=== PATIENT | female | born 1950 | race Caucasian/White ===

== ENCOUNTER 2018-04-26 09:08 | Emergency (ER) | payer MEDICARE, OTHER ==
[~2018-04-26] VITALS: Ht 578.2 cm; Wt 59.1 kg
[~2018-04-26 09:08] MED LIST: ALPR-624 PO
[2018-04-26 09:13] VITALS: BP 121/60
[2018-04-26] MEDS ORDERED: HYDR-569 PO (10:40)
[2018-04-26] MEDS ORDERED: HYDROcodone/acetaminophen 5mg/325mg tablet PO ONE (10:40)
== END 2018-04-26 10:52 | disposition home or self-care (01) ==
LOC: ER 09:09
DX: S42.002A Fracture of unspecified part of left clavicle, initial encounter for closed fracture (principal); Z86.14 Personal history of Methicillin resistant Staphylococcus aureus infection; Z88.1 Allergy status to other antibiotic agents; Z79.899 Other long term (current) drug therapy; W22.8XXA Striking against or struck by other objects, initial encounter; Y93.89 Activity, other specified; Y92.89 Other specified places as the place of occurrence of the external cause; Y99.8 Other external cause status
CPT/HCPCS: 73000; 99284; A4565; L3650

== ENCOUNTER 2018-05-02 16:24 | Emergency (ER) | payer MEDICARE, OTHER ==
[~2018-05-02] VITALS: Ht 167.6 cm; Wt 59.1 kg
[~2018-05-02 16:24] MED LIST changes: +HYDR-569 PO
[2018-05-02] MEDS ORDERED: HYDR-565 PO (18:19)
[2018-05-02 18:47] VITALS: BP 135/84
== END 2018-05-02 18:48 | disposition home or self-care (01) ==
LOC: ER 16:24
DX: S42.002D Fracture of unspecified part of left clavicle, subsequent encounter for fracture with routine healing (principal); Z88.1 Allergy status to other antibiotic agents; W22.8XXD Striking against or struck by other objects, subsequent encounter
CPT/HCPCS: 73030; 99284

== ENCOUNTER 2018-05-09 15:38 | Inpatient (IN) | payer MEDICARE, OTHER ==
[~2018-05-09] VITALS: Ht 167.6 cm; Wt 59.0 kg
[~2018-05-09 15:38] MED LIST changes: +HYDR-4383 PO; -HYDR-569 PO
[2018-05-09] MEDS ORDERED: normal saline 1000ML IV soln IV ONE (15:50)
[2018-05-09 16:17] LABS: INR 1.3 INR; PARTIAL THROMBOPLASTIN TIME 27 SECONDS (22-32); PROTHROMBIN TIME 12.9 SECONDS (9.0-12.0)
[2018-05-09 16:20] LABS: BASOPHILS % (AUTO) 0.1 % (0-1); EOSINOPHILS % (AUTO) 0 % (0-6); HEMATOCRIT 27.1 % (35.0-45.0); HEMOGLOBIN 9.1 g/dl (12.0-16.0); LYMPHOCYTES % (AUTO) 8.4 % (21-51); MEAN CORPUSCULAR HEMOGLOBIN 32.6 PG (27.0-31.0); MEAN CORPUSCULAR HGB CONC 33.6 % (33.0-36.5); MEAN CORPUSCULAR VOLUME 96.9 FL (78-98); MEAN PLATELET VOLUME 9.3 FL (7.4-10.4); MONOCYTES # (AUTO) 0.4 X10'3 (0-0.9); MONOCYTES % (AUTO) 3.3 % (2-12); NEUTROPHILS # (AUTO) 10.9 X10'3 (1.8-7.7); NEUTROPHILS % (AUTO) 88.2 % (42-75); PLATELET COUNT 190 X10'3 (140-440); RED CELL DISTRIBUTION WIDTH 16.1 % (11.5-14.5); WHITE BLOOD COUNT 12.3 X10'3 (4.5-11.0)
[2018-05-09 16:22] LABS: ACETAMINOPHEN < 2.0 UG/ML (10-30); ALANINE AMINOTRANSFERASE 56 U/L (12-78); ALBUMIN 2.1 G/DL (3.4-5.0); ALBUMIN/GLOBULIN RATIO 0.4 (1.1-1.5); ALKALINE PHOSPHATASE 360 IU/L (46-116); ANION GAP 16 (8-16); ASPARTATE AMINO TRANSFERASE 209 U/L (10-37); BILIRUBIN,TOTAL 1.5 MG/DL (0.1-1.0); BLOOD UREA NITROGEN 46 MG/DL (7-18); BUN/CREATININE RATIO 18.3 (6.6-38.0); CALCIUM 8.7 MG/DL (8.5-10.1); CHLORIDE 106 MMOL/L (99-107); CREATININE 2.51 MG/DL (0.40-0.90); ETHANOL < 0.010 GM/DL (0.0-0.010); GLUCOSE 225 MG/DL (70-104); MAGNESIUM 2.2 MG/DL (1.5-2.4); POTASSIUM 3.6 MMOL/L (3.5-5.1); SODIUM 139 MMOL/L (135-145); TOTAL CARBON DIOXIDE 17.3 MMOL/L (24-32); eGFR 19 ML/MIN
[2018-05-09 17:01] LABS: CLARITY,URINE CLEAR (Clear); COLOR,URINE YELLOW (Yellow); GLUCOSE, URINE NEGATIVE (Neg); KETONES,URINE TRACE mg/dl (Neg); LEUKOCYTE ESTERASE ,URINE SMALL (Neg); NITRITES, URINE NEGATIVE (Neg); OCCULT BLOOD,URINE LARGE (Neg); PROTEIN,URINE 30 mg/dl (Neg)
[2018-05-09 17:04] LABS: UA COLLECTION TYPE STRAIGHT CATH
[2018-05-09 17:08] LABS: MUCUS STRANDS FEW /LPF (Neg); SQUAMOUS EPITHELIAL CELL,UR MODERATE /LPF (FEW)
[2018-05-09 17:11] LABS: TRANSITIONAL EPI CELLS,URINE FEW /HPF
[2018-05-09 17:14] LABS: BACTERIA,URINE 1+ /HPF (Neg)
[2018-05-09 17:16] LABS: URINE AMPHETAMINE SCREEN NEGATIVE (Neg); URINE BARBITUATE SCREEN NEGATIVE (Neg); URINE BENZODIAZEPINES SCREEN POSITIVE (Neg); URINE CANNABINOID SCREEN NEGATIVE (Neg); URINE COCAINE SCREEN NEGATIVE (Neg); URINE METHADONE SCREEN NEGATIVE (Neg); URINE OPIATE SCREEN POSITIVE (Neg); URINE PHENCYCLIDINE SCREEN NEGATIVE (Neg)
[2018-05-09] MEDS ORDERED: ondansetron/PF 4mg/2ml inj IV PRN (17:55)
[2018-05-09] MEDS ORDERED: magnesium hydroxide 30ml (MOM) UD suspension PO PRN (17:55)
[2018-05-09] MEDS ORDERED: naloxone 0.4 mg/ml inj IV ONE (17:55)
[2018-05-09] MEDS ORDERED: mag hydrox/Alum hydrox/simeth 30ml oral suspension PO PRN (17:55)
[2018-05-09] MEDS ORDERED: HYDROcodone/acetaminophen 10/325mg tab PO PRN (17:55)
[2018-05-09] MEDS ORDERED: HYDROcodone/acetaminophen 5mg/325mg tablet PO PRN (17:55)
[2018-05-09] MEDS ORDERED: morphine 2 MG/ML inj. syringe IV PRN ×2 (17:55)
[2018-05-09] MEDS ORDERED: acetaminophen 325mg tablet PO PRN ×2 (17:55)
[2018-05-09] MEDS: normal saline 1000ml 1,000 ML IV SCH (17:58)
[2018-05-09] MEDS ORDERED: PANT40TA4 PO (18:04)
[2018-05-09] MEDS ORDERED: LORA10TA7 PO (18:04)
[2018-05-09] MEDS ORDERED: GABA-530 PO (18:18)
[2018-05-09] MEDS: heparin, porcine 5000 units/ml vial SQ SCH (21:47)
[2018-05-09 22:52] VITALS: BP 120/68
[2018-05-10] VITALS (7 sets, daily range): BP systolic 84–115; BP diastolic 41–49
[2018-05-10] MEDS: normal saline 1000ml 1,000 ML IV SCH ×3 (01:59→22:41)
[2018-05-10 05:13] LABS: HEMATOCRIT 24.5 % (35.0-45.0); HEMOGLOBIN 8.4 g/dl (12.0-16.0); MEAN CORPUSCULAR HEMOGLOBIN 33.1 PG (27.0-31.0); MEAN CORPUSCULAR HGB CONC 34.4 % (33.0-36.5); MEAN CORPUSCULAR VOLUME 96.4 FL (78-98); MEAN PLATELET VOLUME 9.1 FL (7.4-10.4); PLATELET COUNT 152 X10'3 (140-440); RED BLOOD COUNT 2.54 X10'6 (4.20-5.60); RED CELL DISTRIBUTION WIDTH 16.5 % (11.5-14.5); WHITE BLOOD COUNT 7.7 X10'3 (4.5-11.0)
[2018-05-10 05:29] LABS: ALANINE AMINOTRANSFERASE 67 U/L (12-78); ALBUMIN 1.7 G/DL (3.4-5.0); ALBUMIN/GLOBULIN RATIO 0.4 (1.1-1.5); ALKALINE PHOSPHATASE 303 IU/L (46-116); ANION GAP 14 (8-16); ASPARTATE AMINO TRANSFERASE 300 U/L (10-37); BILIRUBIN,TOTAL 1.1 MG/DL (0.1-1.0); BLOOD UREA NITROGEN 43 MG/DL (7-18); BUN/CREATININE RATIO 22.4 (6.6-38.0); CALCIUM 8.1 MG/DL (8.5-10.1); CHLORIDE 112 MMOL/L (99-107); CREATININE 1.92 MG/DL (0.40-0.90); GLUCOSE 116 MG/DL (70-104); POTASSIUM 3.3 MMOL/L (3.5-5.1); SODIUM 144 MMOL/L (135-145); TOTAL CARBON DIOXIDE 17.7 MMOL/L (24-32); TOTAL PROTEIN 6.1 G/DL (6.4-8.2); eGFR 26 ML/MIN
[2018-05-10 07:43] LABS: ANISOCYTOSIS 1+; PLATELET ESTIMATE NORMAL; TOTAL CELLS COUNTED 100
[2018-05-10] MEDS ORDERED: HYDROcodone/acetaminophen 5mg/325mg tablet PO PRN (08:20)
[2018-05-10] MEDS ORDERED: potassium Cl 20 mEq SR tablet PO STA (08:20)
[2018-05-10] MEDS: heparin, porcine 5000 units/ml vial SQ SCH ×2 (08:35→19:38)
[2018-05-10] MEDS ORDERED: pneumococcal 23-VAL P-sac vacc 25 mcg/0.5ml vial IMVAC ONE (12:15)
[2018-05-10] MEDS: gabapentin 100mg capsule PO SCH (16:48)
[2018-05-11] MEDS: gabapentin 100mg capsule PO SCH ×3 (00:10→16:21)
[2018-05-11 00:25] VITALS: BP 106/47
[2018-05-11 05:33] LABS: HEMATOCRIT 23.7 % (35.0-45.0); HEMOGLOBIN 8.3 g/dl (12.0-16.0); MEAN CORPUSCULAR VOLUME 97.1 FL (78-98); MEAN PLATELET VOLUME 9.5 FL (7.4-10.4); PLATELET COUNT 161 X10'3 (140-440); RED BLOOD COUNT 2.44 X10'6 (4.20-5.60); RED CELL DISTRIBUTION WIDTH 17.6 % (11.5-14.5); WHITE BLOOD COUNT 7.1 X10'3 (4.5-11.0)
[2018-05-11 05:44] LABS: ALANINE AMINOTRANSFERASE 63 U/L (12-78); ALBUMIN 1.6 G/DL (3.4-5.0); ALBUMIN/GLOBULIN RATIO 0.4 (1.1-1.5); ALKALINE PHOSPHATASE 306 IU/L (46-116); ANION GAP 15 (8-16); ASPARTATE AMINO TRANSFERASE 220 U/L (10-37); BILIRUBIN,TOTAL 1.1 MG/DL (0.1-1.0); BLOOD UREA NITROGEN 41 MG/DL (7-18); BUN/CREATININE RATIO 28.3 (6.6-38.0); CALCIUM 8.1 MG/DL (8.5-10.1); CHLORIDE 115 MMOL/L (99-107); CREATININE 1.45 MG/DL (0.40-0.90); GLUCOSE 148 MG/DL (70-104); POTASSIUM 3.6 MMOL/L (3.5-5.1); SODIUM 146 MMOL/L (135-145); TOTAL CARBON DIOXIDE 15.9 MMOL/L (24-32); TOTAL PROTEIN 5.8 G/DL (6.4-8.2); eGFR 36 ML/MIN
[2018-05-11 06:56] LABS: TOTAL CELLS COUNTED 100
[2018-05-11 06:57] LABS: ANISOCYTOSIS 2+; PLATELET ESTIMATE NORMAL
[2018-05-11 07:00] VITALS: BP 102/49
[2018-05-11] MEDS: heparin, porcine 5000 units/ml vial SQ SCH ×2 (07:03→19:54)
[2018-05-11] MEDS: loratadine 10mg tablet PO SCH (07:03)
[2018-05-11] MEDS: pantoprazole 40mg Tablet.DR PO SCH (07:03)
[2018-05-11] MEDS: lactulose 20gm/30ml cup PO SCH ×2 (10:26→19:54)
[2018-05-11] MEDS: normal saline 1000ml 1,000 ML IV SCH ×2 (10:26→22:46)
[2018-05-11] MEDS: CefTRIAXone/D5W-Rocephin 1gm 50 ML IV SCH (10:26)
[2018-05-11 11:00] VITALS: BP 109/50
[2018-05-11 11:43] VITALS: BP_SYST 108; BP_SYST 109; BP_DIAS 50; BP_DIAS 54
[2018-05-11 19:00] VITALS: BP 121/43
[2018-05-12] VITALS: BP 133/65
[2018-05-12] MEDS: gabapentin 100mg capsule PO SCH ×3 (00:07→15:32)
[2018-05-12 05:19] LABS: BASOPHILS % (AUTO) 0.3 % (0-1); EOSINOPHILS % (AUTO) 0.1 % (0-6); HEMATOCRIT 24.6 % (35.0-45.0); HEMOGLOBIN 8.5 g/dl (12.0-16.0); LYMPHOCYTES # (AUTO) 2.1 X10'3 (1.1-4.8); LYMPHOCYTES % (AUTO) 27.7 % (21-51); MEAN CORPUSCULAR HEMOGLOBIN 33.5 PG (27.0-31.0); MEAN CORPUSCULAR HGB CONC 34.4 % (33.0-36.5); MEAN CORPUSCULAR VOLUME 97.2 FL (78-98); MEAN PLATELET VOLUME 9.2 FL (7.4-10.4); MONOCYTES # (AUTO) 0.4 X10'3 (0-0.9); MONOCYTES % (AUTO) 5.3 % (2-12); NEUTROPHILS % (AUTO) 66.6 % (42-75); PLATELET COUNT 163 X10'3 (140-440); RED BLOOD COUNT 2.53 X10'6 (4.20-5.60); RED CELL DISTRIBUTION WIDTH 17.8 % (11.5-14.5); WHITE BLOOD COUNT 7.5 X10'3 (4.5-11.0)
[2018-05-12 05:40] LABS: ALANINE AMINOTRANSFERASE 70 U/L (12-78); ALBUMIN 1.6 G/DL (3.4-5.0); ALBUMIN/GLOBULIN RATIO 0.4 (1.1-1.5); ALKALINE PHOSPHATASE 317 IU/L (46-116); ANION GAP 17 (8-16); ASPARTATE AMINO TRANSFERASE 164 U/L (10-37); BILIRUBIN,TOTAL 0.8 MG/DL (0.1-1.0); BLOOD UREA NITROGEN 36 MG/DL (7-18); BUN/CREATININE RATIO 30.8 (6.6-38.0); CALCIUM 8.3 MG/DL (8.5-10.1); CHLORIDE 118 MMOL/L (99-107); CREATININE 1.17 MG/DL (0.40-0.90); GLUCOSE 163 MG/DL (70-104); POTASSIUM 3.2 MMOL/L (3.5-5.1); SODIUM 150 MMOL/L (135-145); TOTAL CARBON DIOXIDE 15.2 MMOL/L (24-32); TOTAL PROTEIN 5.9 G/DL (6.4-8.2); eGFR 46 ML/MIN
[2018-05-12] MEDS: normal saline 1000ml 1,000 ML IV SCH ×2 (05:52→10:50)
[2018-05-12 07:26] VITALS: BP 110/45
[2018-05-12] MEDS: CefTRIAXone/D5W-Rocephin 1gm 50 ML IV SCH (08:17)
[2018-05-12] MEDS: loratadine 10mg tablet PO SCH (08:19)
[2018-05-12] MEDS: pantoprazole 40mg Tablet.DR PO SCH (08:20)
[2018-05-12] MEDS: lactulose 20gm/30ml cup PO SCH ×2 (08:20→19:47)
[2018-05-12] MEDS: heparin, porcine 5000 units/ml vial SQ SCH ×2 (08:28→19:46)
[2018-05-12] MEDS ORDERED: potassium Cl 20 mEq SR tablet PO STA (11:02)
[2018-05-12 12:00] VITALS: BP 132/66
[2018-05-12] MEDS: lactobacillus rhamnosus 10,000 MMU CELLS/CAPSULE PO SCH (19:47)
[2018-05-12 20:00] VITALS: BP_SYST 123; BP_SYST 97; BP_DIAS 51; BP_DIAS 66
[2018-05-13] VITALS: BP 106/62
[2018-05-13] MEDS: gabapentin 100mg capsule PO SCH ×3 (00:24→15:37)
[2018-05-13 05:33] LABS: BASOPHILS % (AUTO) 0.1 % (0-1); EOSINOPHILS % (AUTO) 0.4 % (0-6); HEMATOCRIT 26.8 % (35.0-45.0); LYMPHOCYTES # (AUTO) 1.1 X10'3 (1.1-4.8); LYMPHOCYTES % (AUTO) 13.3 % (21-51); MEAN CORPUSCULAR HEMOGLOBIN 33.2 PG (27.0-31.0); MEAN CORPUSCULAR HGB CONC 33.5 % (33.0-36.5); MEAN PLATELET VOLUME 9.9 FL (7.4-10.4); MONOCYTES # (AUTO) 0.5 X10'3 (0-0.9); MONOCYTES % (AUTO) 5.5 % (2-12); NEUTROPHILS # (AUTO) 6.9 X10'3 (1.8-7.7); NEUTROPHILS % (AUTO) 80.7 % (42-75); PLATELET COUNT 197 X10'3 (140-440); RED CELL DISTRIBUTION WIDTH 18.9 % (11.5-14.5); WHITE BLOOD COUNT 8.5 X10'3 (4.5-11.0)
[2018-05-13 06:00] LABS: ALANINE AMINOTRANSFERASE 86 U/L (12-78); ALBUMIN 1.8 G/DL (3.4-5.0); ALBUMIN/GLOBULIN RATIO 0.4 (1.1-1.5); ALKALINE PHOSPHATASE 369 IU/L (46-116); ANION GAP 15 (8-16); ASPARTATE AMINO TRANSFERASE 142 U/L (10-37); BILIRUBIN,TOTAL 0.7 MG/DL (0.1-1.0); BLOOD UREA NITROGEN 31 MG/DL (7-18); BUN/CREATININE RATIO 26.3 (6.6-38.0); CALCIUM 8.7 MG/DL (8.5-10.1); CHLORIDE 118 MMOL/L (99-107); CREATININE 1.18 MG/DL (0.40-0.90); GLUCOSE 220 MG/DL (70-104); POTASSIUM 4.3 MMOL/L (3.5-5.1); SODIUM 149 MMOL/L (135-145); TOTAL CARBON DIOXIDE 16.1 MMOL/L (24-32); TOTAL PROTEIN 6.6 G/DL (6.4-8.2); eGFR 45 ML/MIN
[2018-05-13 07:28] VITALS: BP 117/44
[2018-05-13] MEDS: CefTRIAXone/D5W-Rocephin 1gm 50 ML IV SCH (08:52)
[2018-05-13] MEDS: lactulose 20gm/30ml cup PO SCH (08:52)
[2018-05-13] MEDS: lactobacillus rhamnosus 10,000 MMU CELLS/CAPSULE PO SCH (08:53)
[2018-05-13] MEDS: pantoprazole 40mg Tablet.DR PO SCH (08:53)
[2018-05-13] MEDS: loratadine 10mg tablet PO SCH (08:53)
[2018-05-13] MEDS: heparin, porcine 5000 units/ml vial SQ SCH (08:53)
[2018-05-13 08:59] VITALS: BP_SYST 113; BP_SYST 117; BP_DIAS 44; BP_DIAS 73
[2018-05-13 11:44] VITALS: BP 113/73
== END 2018-05-13 16:38 | DRG 917 ==
LOC: ER 15:39 → ED HOLD 17:52 → SUR 3N 19:11 → UNDODISIN 05-13 15:00
PROVIDERS: ADMIT Internal Medicine; ATTEND Internal Medicine
PROC: 3E02340 Introduction of Influenza Vaccine into Muscle, Percutaneous Approach (ICD-10-PCS; 2018-05-10)
PROC: 3E0234Z Introduction of Serum, Toxoid and Vaccine into Muscle, Percutaneous Approach (ICD-10-PCS; 2018-05-10)
PROC: 4A10X4Z Monitoring of Central Nervous Electrical Activity, External Approach (ICD-10-PCS; principal; 2018-05-13)
DX: T40.2X1A Poisoning by other opioids, accidental (unintentional), initial encounter (principal); G92 Toxic encephalopathy; N17.9 Acute kidney failure, unspecified; N39.0 Urinary tract infection, site not specified; B96.4 Proteus (mirabilis) (morganii) as the cause of diseases classified elsewhere; K74.60 Unspecified cirrhosis of liver; F10.20 Alcohol dependence, uncomplicated; E86.0 Dehydration; K21.9 Gastro-esophageal reflux disease without esophagitis; N18.3 Chronic kidney disease, stage 3 (moderate); D50.9 Iron deficiency anemia, unspecified; E88.09 Other disorders of plasma-protein metabolism, not elsewhere classified; F41.9 Anxiety disorder, unspecified; G89.29 Other chronic pain; K70.10 Alcoholic hepatitis without ascites; K72.90 Hepatic failure, unspecified without coma; M19.90 Unspecified osteoarthritis, unspecified site; R09.02 Hypoxemia; M54.9 Dorsalgia, unspecified; Z96.649 Presence of unspecified artificial hip joint; Z23 Encounter for immunization; Z88.1 Allergy status to other antibiotic agents; Z79.899 Other long term (current) drug therapy; Z87.891 Personal history of nicotine dependence; Y92.89 Other specified places as the place of occurrence of the external cause
CPT/HCPCS: 36415; 70450; 70551; 71045; 80053; 80305; 80320; 80329; 81001; 82140; 83735; 85025; 85610; 85730; 87070; 87077; 87088; 87186; 90732; 93005; 95816; 96360; 97161; 97530; 99285; J0696; J1644; J2310; J2405; J7030

== ENCOUNTER 2018-06-03 08:38 | Day surgery (SDC) | payer MEDICARE ==
[2018-06-03] VITALS (11 sets, daily range): BP systolic 82–101; BP diastolic 45–58
[~2018-06-03 08:38] MED LIST changes: -ALPR-624 PO; +GABA-530 PO; +LIDOcaine 1% 30ml preserv. free vial SQ STA; +LORA10TA7 PO; +PANT40TA4 PO
[2018-06-03] MEDS ORDERED: albumin (human) 25% 100 ML IV solution IV PRN (09:30)
[2018-06-03] MEDS ORDERED: normal saline 1000ml 1,000 ML IV PRN (09:30)
[2018-06-03] MEDS ORDERED: ASCO500C15 PO (11:04)
[2018-06-03] MEDS ORDERED: MULT-933 PO (11:04)
[2018-06-03] MEDS ORDERED: LACT10SO PO (11:04)
[2018-06-03] MEDS ORDERED: [UNRECOGNIZED DRUG - CODE] PO (11:04)
[2018-06-03] MEDS ORDERED: HYDR-4383 PO (11:05)
[2018-06-03] MEDS ORDERED: ACET-2119 PO (11:06)
== END 2018-06-03 11:50 ==
LOC: SSTAY O 08:38
PROVIDERS: ATTEND Radiology Diagnostic Radiology
DX: K70.31 Alcoholic cirrhosis of liver with ascites (principal); E86.0 Dehydration; N18.6 End stage renal disease; K21.9 Gastro-esophageal reflux disease without esophagitis; G43.909 Migraine, unspecified, not intractable, without status migrainosus; M17.0 Bilateral primary osteoarthritis of knee; F41.8 Other specified anxiety disorders; F15.11 Other stimulant abuse, in remission; F10.21 Alcohol dependence, in remission; F11.11 Opioid abuse, in remission; Z88.1 Allergy status to other antibiotic agents; Z86.69 Personal history of other diseases of the nervous system and sense organs; Z79.891 Long term (current) use of opiate analgesic; Z87.891 Personal history of nicotine dependence; Z87.09 Personal history of other diseases of the respiratory system; Z86.19 Personal history of other infectious and parasitic diseases; Z79.899 Other long term (current) drug therapy; Z98.890 Other specified postprocedural states
CPT/HCPCS: 49083; J3490; J7030; P9047